=== PATIENT | male | born 2000 | race Caucasian/White ===

== ENCOUNTER 2022-04-21 09:18 | Observation (INO) ==
[2022-04-21] MEDS ORDERED: SODIUM CHLORIDE 0.9% 1000ML 1,000 ML IV ONE (10:25)
--- NOTE | 2022-04-21 10:41 | Emergency Department Note ---
Impression & Plan Facial cellulitis, Facial swelling, Abscess of face ED Provider Note INFORMANT: Patient ED PROVIDER(S): Bandar Beavers MD CHIEF COMPLAINT: Facial swelling PLAN: Disposition: Admitted Condition: Good Outpatient prescription management: none Referral: None MEDICAL DECISION MAKING: Patient presented to the emergency [facility] because of facial swelling. Blood work is obtained. The patient had a mild leukocytosis. Chemistry panel was unremarkable. He underwent CT imaging and he was found to have facial cellulitis as well as a facial abscess. He was given IV clindamycin. I did c onsult with Dr. Lehman of oral maxillofacial surgery. He agreed with the antibiotics and felt that bringing him into the hospital for additional antibiotics and surgical intervention would be most appropriate. I did consult with the [facility] service. Patient was evaluated in the ER and admitted for further management. Triage Nursing notes reviewed and agree them. Vital Signs: reviewed and remarkable for fever Differential diagnosis: Facial cellulitis, sinusitis, dental abscess, viral syndrome, parotitis,peritonsillar abscess, retropharyngeal abscess, otitis, as well as other pathologies. Diagnostics interpreted by me: ECG: none Cardiac Monitoring: None Imaging studies: CT imaging with IV contrast revealed facial cellulitis and abscess. I refer you to the EMR for further details. HPI: The patient is a 21 year old male who presents to the Emergency Room with complaints of left facial swelling. This started yesterday and is worsening. Located in the left cheek area. Patient denies trauma. The patient also notes the following associated symptoms, none. The patient has taken ibuprofen for relieving factors. Current pain is rated as 5/10. Patient currently residing at [facility] for alcohol issues. Last drink was 10 days ago. Pt denies LOC, headache, fevers, chills, diaphoresis, visual changes, neck pain, chest pain, breathing difficulties, nausea, vomiting, abdominal pain, back pain, numbness, weakness, lymphadenopathy, rash, or other complaints. ROS: See above HPI for pertinent positives & negatives. A total of 10 systems reviewed and were otherwise negative. PAST MEDICAL HISTORY:See Below , alcohol abuse PAST SURGICAL HISTORY:See Below, FAMILY HISTORY:See Below SOCIAL HISTORY:See Below, smoker HOME MEDICATIONS:See Below ALLERGIES:See Below VITALS:See Below PHYSICAL EXAMINATION: GENERAL: Awake, alert, mildly uncomfortable-appearing, in no distress HENT: Normocephalic, left facial swelling appreciated from below the eye down to the angle of the mouth. Mild associated tenderness. Oropharynx examination was unremarkable except for poor dentition. No significant gum swelling or tooth tenderness to percussion. EYES: Normal conjunctiva. Sclera non-icteric. PERRLA. EOMI. NECK: Inspection normal. Non-tender. Supple. No nuchal rigidity. FROM. No masses. RESPIRATORY: Clear to auscultation. No wheezes. No rales. Normal respiratory effort. CARDIAC: Tachycardic rate. Normal rhythm. No murmurs. No rubs. Extremities warm and well perfused. Pulses equal. No JVD. GI: Soft, non-distended. No tenderness to palpation. No rebound or guarding. No masses. MUSCULOSKELETAL: Atraumatic. There is no CVA tenderness to palpation. No joint edema. NEURO: Normal sensorium. No sensory or motor deficits noted. SKIN: No rash or jaundice noted. Bandar Beavers MD Past Med/Surg History Medical History (Updated 04/21/22 @ 15:32 by Bandar Beavers MD) AA (alcohol abuse) ADHD Anxiety Facial cellulitis Family History (Updated 04/21/22 @ 13:18 by EDUARD Argueta) Grandfather Heart disease Myocardial infarction Other Hypertension Social History Smoking Status: Current every day smoker Preferred Language: Hong Konger Feels Safe at Home: Yes Allergies Allergies Allergy/AdvReac Type Severity Reaction Status Date / Time Penicillins Allergy Hives Unverified 04/21/22 11:11 Home Meds Home Medications Medication Instructions Recorded Confirmed acetaminophen 650 mg tablet 650 mg PO Q4H PRN 04/21/22 04/21/22 clonidine HCl 0.1 mg tablet 0.1 mg PO DAILY 04/21/22 04/21/22 dexmethylphenidate 20 mg 20 mg PO DAILY 04/21/22 04/21/22 capsule,extended release [id number] (Focalin XR) escitalopram oxalate 20 mg tablet 20 mg PO HS 04/21/22 04/21/22 famotidine 20 mg tablet 20 mg PO BID 04/21/22 04/21/22 folic acid 1 mg tablet 1 mg PO DAILY 04/21/22 04/21/22 hydroxyzine pamoate 50 mg capsule 50 mg PO DAILY 04/21/22 04/21/22 ibuprofen 600 mg tablet 600 mg PO Q6H PRN 04/21/22 04/21/22 loratadine 10 mg tablet (Claritin) 10 mg PO DAILY 04/21/22 04/21/22 mecobalamin (vitamin B12) 1,000 1,000 mcg PO DAILY 04/21/22 04/21/22 mcg chewable tablet (B12 Active) melatonin 5 mg chewable tablet 5 mg PO HS PRN 04/21/22 04/21/22 multivitamin 1 tab PO DAILY 04/21/22 04/21/22 thiamine HCl (vitamin B1) 100 mg 100 mg PO DAILY 04/21/22 04/21/22 tablet Results & Data (ED) Vital Signs Vital Signs - 24 hr 04/21/22 09:19 04/21/22 10:40 04/21/22 11:47 Temperature 37.6 C H Temperature Source Oral Pulse Rate 128 H 117 H Pulse Rate [Finger] 123 H 117 H 98 H Pulse Rhythm Regular Pulse Rhythm [Finger] Regular Regular Pulse Strength [Finger] Normal Normal Respiratory Rate 16 18 18 Respiratory Effort / Characteristics Non-Labored Non-Labored Spontaneous Respiratory Depth Normal Normal Respiratory Pattern Regular Regular Blood Pressure 136/86 Blood Pressure [Left Arm] 136/86 134/84 136/96 Blood Pressure Mean 102 Blood Pressure Mean [Left Arm] 102 100 109 Blood Pressure Position [Left Arm] Sitting Sitting Pulse Oximetry 96 97 98 Oxygen Delivery Method Room Air Room Air Sepsis Recent Fever Within 48 Hours No Sepsis New/Unexplained Change in Mental Status No Sepsis Action Taken by Nursing No Action Required Laboratory Data Result diagrams: 04/21/22 10:40 04/21/22 10:40 Lab Results 04/21/22 04/21/22 04/21/22 Range/Units 10:40 10:40 12:40 WBC 12.87 H (4.8-10.8) K/uL RBC 4.69 L (4.7-6.1) M/uL Hgb 15.2 (14.0-18.0) g/dL Hct 45.9 (42-52) % MCV 97.9 (80-100) fL MCH 32.4 (25-34) pg MCHC 33.1 (32-36) g/dL RDW Std Deviation 43.8 (36.4-46.3) fL RDW Coeff of Meg 12.3 (11.5-14.5) % Plt Count 290 (130-400) K/uL MPV 10.2 (7.4-10.4) fL Immature Gran % (Auto) 0.2 % Neut % (Auto) 74.0 % Lymph % (Auto) 9.9 % Bremer % (Auto) 14.8 % Eos % (Auto) 0.9 % Baso % (Auto) 0.2 % Neut # (Auto) 9.53 H (1.4-6.5) K/uL Lymph # (Auto) 1.27 (1.2-3.4) K/uL Bremer # (Auto) 1.91 H (0.11-0.59) K/uL Eos # (Auto) 0.11 (0-0.5) K/uL Baso # (Auto) 0.02 (0-0.2) K/uL Immature Gran # (Auto) 0.03 H (0.00-0.02) K/uL Sodium 139 (136-145) mmol/L Potassium 3.9 (3.5-5.1) mmol/L Chloride 105 (98-107) mmol/L Carbon Dioxide 29 (21-32) mmol/L Anion Gap 5 (3-11) BUN 11 (6-23) mg/dl Creatinine 1.03 (0.6-1.4) mg/dl Est Cr Clr Drug Dosing 99.1 ml/min Est GFR ( Amer) 119.0 ml/min Est GFR (Non-Af Amer) 102.6 ml/min BUN/Creatinine Ratio 10.7 (10-20) Glucose 93 (70-99(Fasting)) mg/dl Calcium 9.8 (8.5-10.1) mg/dl Total Bilirubin 1.4 H (0.2-1.0) mg/dl AST 14 (13-39) U/L ALT 16 (7-52) U/L Alkaline Phosphatase 42 (34-104) U/L Total Protein 7.6 (6.0-8.3) gm/dl Albumin 4.7 (3.4-5.0) gm/dl Globulin 2.9 (2.5-4.0) gm/dl Albumin/Globulin Ratio 1.6 (0.9-2) SARS-CoV-2, RNA, NAAT NEGATIVE (NEGATIVE) Administered Medications Discontinued Medications Acetaminophen (Acetaminophen 500 Mg Tab) 1,000 mg PO NOW STA Stop: 04/21/22 12:19 Last Admin: 04/21/22 12:48 Dose: 1,000 mg Documented by: [id number] Sodium Chloride (Nss 1000ml) 1,000 mls @ 999 mls/hr IV .Q1H1M ONE Stop: 04/21/22 11:25 Last Infusion: 04/21/22 11:48 Dose: 0 mls/hr Documented by: [id number] Admin: 04/21/22 10:45 Dose: 999 mls/hr Documented by: [id number] Clindamycin Phosphate 600 mg/ (Dextrose) 54 mls @ 100 mls/hr IV ONE ONE Stop: 04/21/22 12:50 Last Infusion: 04/21/22 13:44 Dose: 0 mls/hr Documented by: [id number] Admin: 04/21/22 12:59 Dose: 100 mls/hr Documented by: [id number] Ioversol (Optiray 320 100ml) 94 ml IV ONCE ONE Stop: 04/21/22 11:35 Last Admin: 04/21/22 11:34 Dose: 94 ml Documented by: [id number] Imaging Data Radiologist's Impression: Soft Tissue Neck CT 04/21/22 10:25 CT OF THE NECK WITH IV CONTRAST CLINICAL HISTORY: left facial swelling, fever COMPARISON STUDY: No previous studies for comparison. TECHNIQUE: Following IV administration of 94 mL of Optiray, helical axial images of the neck were obtained. Sagittal and coronal reconstructions were viewed. Automated exposure control was utilized for the study. A dose lowering technique was utilized adhering to the principles of ALARA. CT DOSE: 405.05 mGy.cm FINDINGS: Visualized portions of the intracranial contents are unremarkable. Mastoid air cells are clear. There is moderate polypoid mucosal thickening of th e left maxillary sinus. Extensive left facial and neck stranding is noted with skin thickening. There is thickening of the left platysma. This is centered on the left maxilla. There is a 2 x 0.7 cm rim-enhancing fluid collection along the anterolateral aspect of the left maxilla. This represents an abscess. The definite source not identified however may be related to a periapical lucency of the maxillary left first bicuspid. This abscess is likely odontogenic. No additional fluid collections are identified. There is no soft tissue gas. Major vasculature of the neck is patent. Lung apices are unremarkable. Epiglottis is normal. Parotid and submandibular glands are normal. Mildly enlarged left cervical lymph nodes are likely reactive. IMPRESSION: 2 x 0.7 cm abscess overlying the left aspect of the maxilla. Definitive source not identified however suspected source is the left first maxillary bicuspid. This abscess is likely odontogenic. Associated left maxillary sinus mucosal thickening and left facial and neck cellulitis. No additional abscesses. ACT 112: Negative or not required by law. Electronically signed by: zEio Garcia M.D. 04/21/2022 12:10 PM Discharge Plan Visit Data Chief Complaint: Facial Injury/Pain Stated Complaint: SWOLLEN FACE, LEFT SIDE, PAIN ED Provider: Bandar Beavers Discharge Problem: Facial cellulitis, Facial swelling, Abscess of face Patient Disposition: Admitted As Inpatient Discharge Instructions Interventions: ED Discharge Assessment Last Done: 04/21/22 15:08
[2022-04-21 11:03] LABS: Basophils # (auto) 0.02 K/uL (0-0.2); Basophils % (auto) 0.2 %; Eosinophils # (auto) 0.11 K/uL (0-0.5); Eosinophils % (auto) 0.9 %; Hematocrit (blood only) 45.9 % (42-52); Hemoglobin 15.2 g/dL (14.0-18.0); Immature Granulocytes # (auto) 0.03 K/uL (0.00-0.02); Immature Granulocytes % (auto) 0.2 %; Lymphocytes # (auto) 1.27 K/uL (1.2-3.4); Lymphocytes % (auto) 9.9 %; Mean Corpuscular Hemoglobin 32.4 pg (25-34); Mean Corpuscular Hgb Conc 33.1 g/dL (32-36); Mean Corpuscular Volume 97.9 fL (80-100); Mean Platelet Volume 10.2 fL (7.4-10.4); Monocytes # (auto) 1.91 K/uL (0.11-0.59); Monocytes % (auto) 14.8 %; Neutrophils # (auto) 9.53 K/uL (1.4-6.5); Platelet Count 290 K/uL (130-400); RDW Coefficient of Variation 12.3 % (11.5-14.5); RDW Standard Deviation 43.8 fL (36.4-46.3); Red Blood Count 4.69 M/uL (4.7-6.1); White Blood Count 12.87 K/uL (4.8-10.8)
[2022-04-21 11:20] LABS: Albumin Globulin Ratio 1.6 (0.9-2); Albumin Level 4.7 gm/dl (3.4-5.0); BUN Creatinine Ratio 10.7 (10-20); Bilirubin,Total 1.4 mg/dl (0.2-1.0); Calcium 9.8 mg/dl (8.5-10.1); Creatinine Clr Calc Pharmacy 99.1 ml/min; Est GFR (Non-African American) 102.6 ml/min; Globulin 2.9 gm/dl (2.5-4.0); Potassium 3.9 mmol/L (3.5-5.1); Total Protein 7.6 gm/dl (6.0-8.3)
[2022-04-21] MEDS ORDERED: OPTIRAY 320 100ml IV ONE (11:34)
--- NOTE | 2022-04-21 12:12 | CT Scan Report ---
CT OF THE NECK WITH IV CONTRAST CLINICAL HISTORY: left facial swelling, fever COMPARISON STUDY: No previous studies for comparison. TECHNIQUE: Following IV administration of 94 mL of Optiray, helical axial images of the neck were ob tained. Sagittal and coronal reconstructions were viewed. Automated exposure control was utilized f or the study. A dose lowering technique was utilized adhering to the principles of ALARA. CT DOSE: 405.05 mGy.cm FINDINGS: Visualized portions of the intracranial contents are unremarkable. Mastoid air cells are c lear. There is moderate polypoid mucosal thickening of the left maxillary sinus. Extensive left facia l and neck stranding is noted with skin thickening. There is thickening of the left platysma. This is centered on the left maxilla. There is a 2 x 0.7 cm rim-enhancing fluid collection along the anterol ateral aspect of the left maxilla. This represents an abscess. The definite source not identified how ever may be related to a periapical lucency of the maxillary left first bicuspid. This abscess is lik barbara odontogenic. No additional fluid collections are identified. There is no soft tissue gas. Major v asculature of the neck is patent. Lung apices are unremarkable. Epiglottis is normal. Parotid and sub mandibular glands are normal. Mildly enlarged left cervical lymph nodes are likely reactive. IMPRESSION: 2 x 0.7 cm abscess overlying the left aspect of the maxilla. Definitive source not ident ified however suspected source is the left first maxillary bicuspid. This abscess is likely odontogen ic. Associated left maxillary sinus mucosal thickening and left facial and neck cellulitis. No additi onal abscesses. ACT 112: Negative or not required by law. Electronically signed by: Ezio Garcia M.D. 04/21/2022 12:10 PM
[2022-04-21] MEDS ORDERED: CLINDAMYCIN 600 MG in DEXTROSE 5% 50 ML IV ONE (12:18)
[2022-04-21] MEDS ORDERED: ACETAMINOPHEN 500 MG TAB PO STA (12:18)
--- NOTE | 2022-04-21 13:00 | History & Physical Report ---
Date of Service April 21, 2022 Assessment & Plan (1) Tooth abscess: Plan: There is moderate polypoid mucosal thickening of the left maxillary sinus. Extensive left facial and neck stranding is noted with skin thickening. There is thickening of the left platysma. This is centered on the left maxilla. There is a 2 x 0.7 cm rim-enhancing fluid collection along the anterolateral aspect of the left maxilla. This represents an abscess. - Clindamycin continue 600mg IV q8 hours - NPO after midnight - Peridex oral rinse at least BID - No active drainage - No difficulty swallowing and voice is normal - OMFS consulted- appreciate assistance (2) AA (alcohol abuse): Plan: ~ Day 14 from last drink and at rehab - Should be well outside the range for any withdraw - He reports not having any hallucinations or seizures with his stay there - MAR reviewed as per HPI has not needed any of his PRNs for withdraw sx - Continue Thiamine and Folic Acid (3) Anxiety: Plan: Continue Hydroxyzine Continue escitalopram 20mg nightly (4) ADHD: Plan: Continue with Focalin XR or equivalent- if no formulary equivalent should be in house <48 hours (5) DVT prophylaxis: Plan: SCDs/ambulation History of Present Illness Primary Care Provider: Chino Bowles 21 YOM that is currently at [facility] ~day 14 for alcohol rehab. He has history of: ADHD, Anxiety with allergy to PCN(Hives as a kid). Patient reports to the EMD today for complaints of left facial pain and swelling. This started approx 2 days ago where he thought he just got bit by something or having an allergic reaction. This progressed to left upper tooth pain and noticing some swelling under his left eye. He denies any fevers, chills, sinus congestion or ear pain and without difficulty swallowing. In the EMD the patient had routine labs performed, and soft tissue of the neck, head and face CT scan performed notable for abscess overlying left maxilla with mucosal thickening. The patient is having pain on the left upper side of his mouth at or approx teeth number 11- 13. Patient was started on Clindamycin by the EMD and EMD physician spoke with OMFS manager web application. Patient to be admitted, kept NPO after midnight for surgical evaluation in the morning. Will continue with Tylenol for pain, allow to eat now, NPO after midnight, Peridex oral rinse. Patient reports that he thought he was drinking a little too much for his age, but didn't have a drinking problem, so he went to [facility] for help. He denies any other drug use. He also denies any hallucinations or difficulty with withdraw. MAR reviewed from there he has not needed any Clonidine for withdraw and feels his anxiety is controlled. COVID test on admission is: NEGATIVE Allergies Allergy/AdvReac Type Severity Reaction Status Date / Time Penicillins Allergy Hives Unverified 04/21/22 11:11 Home Medications Medication Instructions Recorded Confirmed Type acetaminophen 650 mg tablet 650 mg PO Q4H PRN 04/21/22 04/21/22 History clonidine HCl 0.1 mg tablet 0.1 mg PO DAILY 04/21/22 04/21/22 History dexmethylphenidate 20 mg 20 mg PO DAILY 04/21/22 04/21/22 History capsule,extended release [id number] (Focalin XR) escitalopram oxalate 20 mg tablet 20 mg PO HS 04/21/22 04/21/22 History famotidine 20 mg tablet 20 mg PO BID 04/21/22 04/21/22 History folic acid 1 mg tablet 1 mg PO DAILY 04/21/22 04/21/22 History hydroxyzine pamoate 50 mg capsule 50 mg PO DAILY 04/21/22 04/21/22 History ibuprofen 600 mg tablet 600 mg PO Q6H PRN 04/21/22 04/21/22 History loratadine 10 mg tablet (Claritin) 10 mg PO DAILY 04/21/22 04/21/22 History mecobalamin (vitamin B12) 1,000 1,000 mcg PO DAILY 04/21/22 04/21/22 History mcg chewable tablet (B12 Active) melatonin 5 mg chewable tablet 5 mg PO HS PRN 04/21/22 04/21/22 History multivitamin 1 tab PO DAILY 04/21/22 04/21/22 History thiamine HCl (vitamin B1) 100 mg 100 mg PO DAILY 04/21/22 04/21/22 History tablet Past Med/Surg History Medical History (Updated 04/21/22 @ 15:32 by Bandar Beavers MD) AA (alcohol abuse) ADHD Anxiety Facial cellulitis Family History (Updated 04/21/22 @ 13:18 by EDUARD Argueta) Grandfather Heart disease Myocardial infarction Other Hypertension Social History Smoking Status: Current every day smoker Preferred Language: Luxembourger Feels Safe at Home: Yes Review of Systems Review of Systems: REVIEW OF SYSTEMS: Constitutional: No fever, sweats or chills Eyes: (+) swelling under left eye, No diplopia, no worsening or blurred vision ENT: (+) left tooth pain, sinus congestion, normal hearing, no trouble swallowing Respiratory: No cough, sputum, dyspnea at rest or on exertion Cardiovascular: No chest pain, tightness or palpitations Abdomen: No pain, nausea, vomiting, diarrhea or constipation Musculoskeletal: No joint pain, calf pain, swelling Neurologic: No weakness, numbness/tingling, or balance problems Psychiatric: (+) anxiety or depression Skin: No rash or itch Physical Exam Physical Exam: PHYSICAL EXAM: General: awake, alert, no apparent distress Head: Normocephalic, atraumatic ENT: swelling to under left eye with erythema, pain with palpation to left max sinus, PERRLA, EOMI, no pharyngeal exudate, mucous membranes dry, no submandibular involvement, Neuro: AAO x 3, speech clear and appropriate, strength intact bilaterally 5/5, sensation intact and equal all extremities and dermatomes, no pronator drift Chest: equal rise and fall of the chest, no accessory muscle use, no heaves or thrills, Clear to auscultation, on room air, Cardiac: Regular rate and rhythm, telemetry reviewed, skin warm dry, cap refill <3 seconds, peripheral pulses +2 no JVD, no murmur, no JVD, no edema GI: NABS x 4 quadrants, soft, nontender to palpation, no rebound, guarding or tenderness : Spontaneously voiding, no pain, no CVA tenderness, Extremities: Normal inspection, no peripheral edema or erythema, calfs nontender to palpation Skin: no rash or erythema Results & Data Results & Data ([facility]) Vital Signs (Past 12 Hours) Vital Signs Temp Pulse Pulse Resp BP BP Pulse Ox 04/21/22 12:45 98 H 18 130/88 99 04/21/22 11:47 98 H 18 136/96 98 04/21/22 10:40 117 H 117 H 18 134/84 97 04/21/22 09:19 37.6 C H 128 H 123 H 16 136/86 136/86 96 Laboratory Results Abnormal lab results 04/21/22 04/21/22 Range/Units 10:40 10:40 WBC 12.87 H (4.8-10.8) K/uL RBC 4.69 L (4.7-6.1) M/uL Neut # (Auto) 9.53 H (1.4-6.5) K/uL Meeker # (Auto) 1.91 H (0.11-0.59) K/uL Immature Gran # (Auto) 0.03 H (0.00-0.02) K/uL Total Bilirubin 1.4 H (0.2-1.0) mg/dl Diagnostic Findings Soft Tissue Neck CT 04/21/22 10:25 CT OF THE NECK WITH IV CONTRAST CLINICAL HISTORY: left facial swelling, fever COMPARISON STUDY: No previous studies for comparison. TECHNIQUE: Following IV administration of 94 mL of Optiray, helical axial images of the neck were obtained. Sagittal and coronal reconstructions were viewed. Automated exposure control was utilized for the study. A dose lowering technique was utilized adhering to the principles of ALARA. CT DOSE: 405.05 mGy.cm FINDINGS: Visualized portions of the intracranial contents are unremarkable. Mastoid air cells are clear. There is moderate polypoid mucosal thickening of the left maxillary sinus. Extensive left facial and neck stranding is noted with skin thickening. There is thickening of the left platysma. This is centered on the left maxilla. There is a 2 x 0.7 cm rim-enhancing fluid collection along the anterolateral aspect of the left maxilla. This represents an abscess. The definite source not identified however may be related to a periapical lucency of the maxillary left first bicuspid. This abscess is likely odontogenic. No additional fluid collections are identified. There is no soft tissue gas. Major vasculature of the neck is patent. Lung apices are unremarkable. Epiglottis is normal. Parotid and submandibular glands are normal. Mildly enlarged left cervical lymph nodes are likely reactive. IMPRESSION: 2 x 0.7 cm abscess overlying the left aspect of the maxilla. Definitive source not identified however suspected source is the left first maxillary bicuspid. This abscess is likely odontogenic. Associated left maxillary sinus mucosal thickening and left facial and neck cellulitis. No additional abscesses. ACT 112: Negative or not required by law. Electronically signed by: Ezio Garcia M.D. 04/21/2022 12:10 PM Medications Administered Discontinued Medications Acetaminophen (Acetaminophen 500 Mg Tab) 1,000 mg PO NOW STA Stop: 04/21/22 12:19 Last Admin: 04/21/22 12:48 Dose: 1,000 mg Documented by: [id number] Sodium Chloride (Nss 1000ml) 1,000 mls @ 999 mls/hr IV .Q1H1M ONE Stop: 04/21/22 11:25 Last Infusion: 04/21/22 11:48 Dose: 0 mls/hr Documented by: [id number] Admin: 04/21/22 10:45 Dose: 999 mls/hr Documented by: [id number] Clindamycin Phosphate 600 mg/ (Dextrose) 54 mls @ 100 mls/hr IV ONE ONE Stop: 04/21/22 12:50 Last Admin: 04/21/22 12:59 Dose: 100 mls/hr Documented by: [id number] Ioversol (Optiray 320 100ml) 94 ml IV ONCE ONE Stop: 04/21/22 11:35 Last Admin: 04/21/22 11:34 Dose: 94 ml Documented by: [id number] ECG Additional Comments: none- will obtain on admission Code Status & VTE Plan Code Status CODE: FULL VTE: SCDS VTE Prophylaxis Plan VTE Prophylaxis will be ordered: Yes Supervising Physician Co-Signing Physician Notes CELL SUPPORT OPERATOR Supervision Note: I personally saw and examined the patient. I verified all al points and agree with CELL SUPPORT OPERATOR with the following exceptions and/or additions: S-This pt is a 21 yo male with a h/o anxiety, AUD, ADHD, who is currently at a substance abuse rehab and presents with worsening facial swelling and pain. Denies fevers/chills. Reports a long h/o dental issues with multiple rounds of dental work. History and ROS reviewed as above O- Vitals reviewed Gen: [AAOx3, NAD] HEENT: [anicteric sclerae, EOMI, left maxillary region with palpable area of fluctuance and tenderness, left maxillary gum erythematous and edematous] CV: [RRR no mgr nl S1S2] Pulm: [CTAB no wcr] Abd: [+BS soft NT ND no masses or hernias] Ext: [no edema, 2+ DP pulses] Skin: [no rashes, warm/dry] Neuro: [full strength throughout] Labs and Rads reviewed A/P-21 yo male here with dental infection and maxillary abscess on left side of face. No evidence of orbital cellulitis on exam or scan. Admit for IV abx, pain control, OMFS eval. check CBC, BMP in AM -continue home meds, no risk for EtOH withdrawal at this point PG Care Time/CCT Total # of Minutes Spent Total Time Spent with Patient: Total time spent is greater than 50% in coordination of care (as documented) at patient's floor/unit and/or counseling patient: Coding Level of Care Code 82256 Initial Inpt Care Lvl 2 Diagnoses Tooth abscess K04.7 AA (alcohol abuse) F10.10 Anxiety F41.9 ADHD F90.9 DVT prophylaxis Z29.9
[2022-04-21] MEDS ORDERED: NON-FORMULARY MEDICATION (Acetaminophen 650 mg Tablet) PO PRN (15:34)
[2022-04-21] MEDS ORDERED: ONDANSETRON INJ 2 MG/ML 2 ML VIAL IV PRN (15:34)
[2022-04-21] MEDS ORDERED: ACETAMINOPHEN 325 MG TAB PO PRN (15:34)
[2022-04-21] MEDS: CHLORHEXIDINE GLUCONATE 0.12% 480 ML MT SCH ×2 (16:52→21:06)
--- NOTE | 2022-04-21 19:31 | Oral/Maxillofacial Consult ---
Date of Consultation April 21, 2022 Assessment & Plan (1) Abscess of face: (2) Tooth abscess: (3) Facial swelling: (4) Facial cellulitis: (5) AA (alcohol abuse): (6) Anxiety: (7) ADHD: History of Present Illness Attending Physician: Aarti Ruiz MD History of Present Illness Oral Maxillofacial Surgery Exam Present Complaint: I have pain/swelling/drainage from my infected upper left teeth. Symptoms just started, he noticed swelling of left upper lip, cheek and infraorbital (cuspid) space Oral Exam: Finding--Swollen tender gingival tissue above teeth 10-14 in the mucobuccal fold, some drainage noted, tender gingival tissue with deep pocket formation. Suggested either extraction vs root canal of # 12 patient elected saving the tooth and will get root canal once he completes rehab. Had extraction of 2 upper pre-molars with ortho I discussed the CT findings and discussed the congestion w/in the left maxillary sinus most likely due to the infected upper left pre-molar tooth Deshawn does not want ant teeth extracted--I told him that the I&D will but him time but ultimately either root canal or extraction will be needed regarding the upper left pre molar tooth. Presently he has NO sinus issues or congestion Imaging: CT OF THE NECK WITH IV CONTRAST CLINICAL HISTORY: left facial swelling, fever FINDINGS: Visualized portions of the intracranial contents are unremarkable. Mastoid air cells are clear. There is moderate polypoid mucosal thickening of the left maxillary sinus. Extensive left facial and neck stranding is noted with skin thickening. There is thickening of the left platysma. This is centered on the left maxilla. There is a 2 x 0.7 cm rim-enhancing fluid collection along the anterolateral aspect of the left maxilla. This represents an abscess. The definite source not identified however may be related to a periapical lucency of the maxillary left first bicuspid. This abscess is likely odontogenic. No additional fluid collections are identified. There is no soft tissue gas. Major vasculature of the neck is patent. Lung apices are unremarkable. Epiglottis is normal. Parotid and submandibular glands are normal. Mildly enlarged left cervical lymph nodes are likely reactive. IMPRESSION: 2 x 0.7 cm abscess overlying the left aspect of the maxilla. Definitive source not identified however suspected source is the left first maxillary bicuspid. This abscess is likely odontogenic. Associated left maxillary sinus mucosal thickening and left facial and neck cellulitis. No additional abscesses. Soft tissue: floor of the mouth, tongue, hard/soft palate, posterior pharyngeal area all with in normal limits, no pathology or abnormal findings noted. Gross intraoral mucobuccal fold swelling Swollen upper lip and infraorbital area Oral Care: Overall oral care is good Occlusion: Class II TMJ exam: No pop, clicking, pain, good ROM, No history of TMJ injury or dysfunction Periodontal exam: Healthy gingival tissue without evidence of periodontal pathology, however upper left side shows acute mucobuccal swelling secondary to current infection Head/Neck exam: Neck is supple, FROM, Able to extend and flex neck w/o difficulty, no masses, no abnormalities, no airway issues, no evidence of sleep apnea. Treatment Plan: To OR tomorrow for intraoral I&D of left subperiostea land infraorbital (cuspid ) space infection (abscess) Set up with general anesthesia in hospital due to complexity of the procedure I reviewed the treatment plan and consent with the patient. Understanding was expressed. Time was given for questions regarding the surgery, risks and post op care. Discussed alternative to treatment--procedure as planned with I and D only as requested by patient. I discussed the need for root canal of upper left pre-molar vs extraction once he completes 21 more days in REHAB. He will seek dental follow up once he in home in the [facility] Risks discussed: Bleeding,Pain,swelling,infection or recurrence of the infection delayed healing, nerve injury to face,lips,tongue,chin area which could be permanent (rare). TMJ, jaw stiffness, ear pain (referred). Sinus problems like fistula or infection.Relationship of wisdom teeth to nerve/sinus and risk of jaw fracture. Home care reviewed: tooth brushing, rinsing, follow up care with Dr Lehman. diet=[id number] dental. Discussed activity level, driving/work Discussed that we will not be able to Rx any narcotic pain Meds-understanding was expressed Surgery to be set up tomorrow in OR I and D left facial infection with placement of Doreen drain Post op oral Clindamycin 300 mg q6 hrs x 10 days while at Rehab I will remove drain in 3-5 days in my office Allergies Allergy/AdvReac Type Severity Reaction Status Date / Time Penicillins Allergy Hives Unverified 04/21/22 11:11 Home Medications Medication Instructions Recorded Confirmed Type acetaminophen 650 mg tablet 650 mg PO Q4H PRN 04/21/22 04/21/22 History clonidine HCl 0.1 mg tablet 0.1 mg PO DAILY 04/21/22 04/21/22 History dexmethylphenidate 20 mg 20 mg PO DAILY 04/21/22 04/21/22 History capsule,extended release [id number] (Focalin XR) escitalopram oxalate 20 mg tablet 20 mg PO HS 04/21/22 04/21/22 History famotidine 20 mg tablet 20 mg PO BID 04/21/22 04/21/22 History folic acid 1 mg tablet 1 mg PO DAILY 04/21/22 04/21/22 History hydroxyzine pamoate 50 mg capsule 50 mg PO DAILY 04/21/22 04/21/22 History ibuprofen 600 mg tablet 600 mg PO Q6H PRN 04/21/22 04/21/22 History loratadine 10 mg tablet (Claritin) 10 mg PO DAILY 04/21/22 04/21/22 History mecobalamin (vitamin B12) 1,000 1,000 mcg PO DAILY 04/21/22 04/21/22 History mcg chewable tablet (B12 Active) melatonin 5 mg chewable tablet 5 mg PO HS PRN 04/21/22 04/21/22 History multivitamin 1 tab PO DAILY 04/21/22 04/21/22 History thiamine HCl (vitamin B1) 100 mg 100 mg PO DAILY 04/21/22 04/21/22 History tablet Patient History Medical History (Updated 04/21/22 @ 15:32 by Bandar Beavers MD) AA (alcohol abuse) ADHD Anxiety Facial cellulitis Family History (Updated 04/21/22 @ 13:18 by EDUARD Argueta) Grandfather Heart disease Myocardial infarction Other Hypertension Social History Smoking Status: Never smoker Hx Alcohol Use: Yes Alcohol type: beer Hx Substance Use: No Preferred Language: Icelandic [employer] Supervisor Required: No Beliefs That Will Affect Care: None Current Living Situation: Rehab Feels Safe at Home: Yes Safety Concerns: Feels Safe At This Time Results & Data ([facility]) Vital Signs (Past 12 Hours) Vital Signs Temp Pulse Pulse Resp BP BP Pulse Ox 04/21/22 15:41 37 C 79 16 135/92 99 04/21/22 15:08 80 19 04/21/22 14:41 106 H 16 124/82 100 04/21/22 13:41 87 17 136/89 100 04/21/22 12:45 98 H 18 130/88 99 04/21/22 11:47 98 H 18 136/96 98 04/21/22 10:40 117 H 117 H 18 134/84 97 04/21/22 09:19 37.6 C H 128 H 123 H 16 136/86 136/86 96 PG Care Time/CCT Total # of Minutes Spent Total Time Spent with Patient: Total time spent is greater than 50% in coordination of care (as documented) at patient's floor/unit and/or counseling patient: Coding Level of Care Code 93000 Office/OBS Consult Lvl 3 Diagnoses Abscess of face L02.01 Tooth abscess K04.7 Facial swelling R22.0 Facial cellulitis L03.211 AA (alcohol abuse) F10.10 Anxiety F41.9 ADHD F90.9
[2022-04-21] MEDS ORDERED: ESCITALOPRAM OXALATE 20 MG TAB PO SCH (21:00)
[2022-04-21] MEDS: CLINDAMYCIN 600 MG in DEXTROSE 5% 50 ML IV SCH (21:01)
[2022-04-21] MEDS: FAMOTIDINE 20 MG TAB PO SCH (21:05)
[2022-04-22] MEDS ORDERED: LACTATED RINGER'S 1,000 ML IV SCH
[2022-04-22] MEDS: CLINDAMYCIN 600 MG in DEXTROSE 5% 50 ML IV SCH ×2 (05:18→12:57)
[2022-04-22 06:32] LABS: Basophils # (auto) 0.03 K/uL (0-0.2); Basophils % (auto) 0.3 %; Eosinophils # (auto) 0.28 K/uL (0-0.5); Eosinophils % (auto) 2.7 %; Hematocrit (blood only) 42.8 % (42-52); Hemoglobin 14.1 g/dL (14.0-18.0); Immature Granulocytes # (auto) 0.02 K/uL (0.00-0.02); Immature Granulocytes % (auto) 0.2 %; Lymphocytes # (auto) 1.89 K/uL (1.2-3.4); Lymphocytes % (auto) 18.4 %; Mean Corpuscular Hemoglobin 32.3 pg (25-34); Mean Corpuscular Hgb Conc 32.9 g/dL (32-36); Mean Corpuscular Volume 97.9 fL (80-100); Mean Platelet Volume 10.2 fL (7.4-10.4); Monocytes # (auto) 1.51 K/uL (0.11-0.59); Monocytes % (auto) 14.7 %; Neutrophils # (auto) 6.52 K/uL (1.4-6.5); Neutrophils % (auto) 63.7 %; Platelet Count 288 K/uL (130-400); RDW Coefficient of Variation 12.3 % (11.5-14.5); RDW Standard Deviation 44.3 fL (36.4-46.3); Red Blood Count 4.37 M/uL (4.7-6.1); White Blood Count 10.25 K/uL (4.8-10.8)
[2022-04-22 06:58] LABS: BUN Creatinine Ratio 8.7 (10-20); Calcium 9.4 mg/dl (8.5-10.1); Creatinine Clr Calc Pharmacy 97.1 ml/min; Est GFR (African American) 117.6 ml/min; Est GFR (Non-African American) 101.4 ml/min; Magnesium 2.1 mg/dl (1.7-2.4)
[2022-04-22] MEDS ORDERED: LIDOCAINE 2% 2 ML VIAL/AMP(20MG/ML) INFIL ONE (07:56)
[2022-04-22] MEDS ORDERED: PROPOFOL IV EMULSION 10 MG/ML 20 ML VIAL IV ONE (07:56)
[2022-04-22] MEDS ORDERED: fentaNYL citrate 100 MCG/2 ML VIAL ONE (07:56)
[2022-04-22] MEDS ORDERED: ROCURONIUM BROMIDE 10 MG/ML 5 ML VIAL IV ONE (07:56)
[2022-04-22] MEDS ORDERED: DEXAMETHASONE SOD INJ 4 MG/ML VIAL ONE (07:56)
[2022-04-22] MEDS ORDERED: MIDAZOLAM HCL 1 MG/ML 2ML VIAL ONE (07:56)
[2022-04-22] MEDS ORDERED: ONDANSETRON INJ 2 MG/ML 2 ML VIAL ONE (07:56)
[2022-04-22] MEDS ORDERED: OXYMETAZOLINE 0.05% 30 ML BTL ONE (07:58)
[2022-04-22] MEDS ORDERED: ACETAMINOPHEN 1000 MG/100 ML IV IV ONE (07:58)
[2022-04-22] MEDS ORDERED: BUPIVACAINE/EPINEPHRINE 0.5% 1:200,000 1.8 ML CARP ONE (08:02)
[2022-04-22] MEDS ORDERED: fentaNYL citrate 100 MCG/2 ML VIAL IV PRN (08:18)
[2022-04-22] MEDS ORDERED: HYDROmorphone INJ 2 MG/ML SYR/VIAL IV PRN (08:18)
[2022-04-22] MEDS ORDERED: ePHEDrine sulfate 50 MG/ML AMP IV PRN (08:18)
[2022-04-22] MEDS ORDERED: ONDANSETRON INJ 2 MG/ML 2 ML VIAL IV PRN (08:18)
[2022-04-22] MEDS ORDERED: ATROPINE SULFATE 0.1 MG/ML 10ML SYR IV PRN (08:18)
--- NOTE | 2022-04-22 08:18 | Anesthesiology Consultation ---
Date of Service April 22, 2022 Assessment & Plan ASA ASA3 Proposed Anesthesia Anesthesia Type: General Risk / Benefits Reviewed With: PT / POA / Parent / Guardian, Accepts Plan and Informed Consent Obtained History Surgery Operation Date: 04/22/22 12:00 Proposed Procedures p Complete Bony Impaction - Moy Lehman, DMD Height/Weight Height: 5 ft 9 in Weight: 61.6 kg Allergies Allergy/AdvReac Type Severity Reaction Status Date / Time Penicillins Allergy Hives Unverified 04/21/22 11:11 Medications Home Medications Medication Instructions Recorded Confirmed Last Taken acetaminophen 650 mg tablet 650 mg PO Q4H PRN 04/21/22 04/21/22 04/21/22 clonidine HCl 0.1 mg tablet 0.1 mg PO DAILY 04/21/22 04/21/22 Unknown dexmethylphenidate 20 mg 20 mg PO DAILY 04/21/22 04/21/22 04/21/22 capsule,extended release [id number] (Focalin XR) escitalopram oxalate 20 mg tablet 20 mg PO HS 04/21/22 04/21/22 Unknown famotidine 20 mg tablet 20 mg PO BID 04/21/22 04/21/22 04/20/22 folic acid 1 mg tablet 1 mg PO DAILY 04/21/22 04/21/22 04/20/22 hydroxyzine pamoate 50 mg capsule 50 mg PO DAILY 04/21/22 04/21/22 Unknown ibuprofen 600 mg tablet 600 mg PO Q6H PRN 04/21/22 04/21/22 04/21/22 loratadine 10 mg tablet (Claritin) 10 mg PO DAILY 04/21/22 04/21/22 04/21/22 mecobalamin (vitamin B12) 1,000 1,000 mcg PO DAILY 04/21/22 04/21/22 04/21/22 mcg chewable tablet (B12 Active) melatonin 5 mg chewable tablet 5 mg PO HS PRN 04/21/22 04/21/22 04/20/22 multivitamin 1 tab PO DAILY 04/21/22 04/21/22 04/21/22 thiamine HCl (vitamin B1) 100 mg 100 mg PO DAILY 04/21/22 04/21/22 04/21/22 tablet Active Medications Generic Name Dose Route Start Last Admin Trade Name Freq PRN Reason Stop Dose Admin Acetaminophen 650 mg 04/21/22 15:34 04/21/22 18:37 Acetaminophen 325 Mg Tab PO 05/21/22 15:33 650 mg Q4H PRN Administration pain/fever Chlorhexidine Gluconate 15 ml 04/21/22 15:34 04/21/22 21:06 Chlorhexidine Gluconate 0.12% 480 Ml MT 05/21/22 15:33 15 ml BID LUPILLO Administration Escitalopram Oxalate 20 mg 04/21/22 21:00 04/21/22 21:05 Escitalopram Oxalate 20 Mg Tab PO 05/21/22 20:59 20 mg HS LUPILLO Administration Famotidine 20 mg 04/21/22 21:00 04/21/22 21:05 Famotidine 20 Mg Tab PO 05/21/22 20:59 20 mg BID LUPILLO Administration Clindamycin Phosphate 600 mg/ 54 mls @ 100 mls/hr 04/21/22 21:00 04/22/22 06:01 Dextrose IV 05/01/22 20:59 Infused Q8H LUPILLO Infusion Lactated Ringer's 1,000 mls @ 80 mls/hr 04/22/22 00:00 04/22/22 01:00 Lr IV 05/22/22 00:00 80 mls/hr .[id number] LUPILLO Administration Miscellaneous 1 ea 04/22/22 00:00 04/21/22 22:10 Dexmethylphenidate [Focalin Xr] - Order Awaiting Action N/A 05/22/22 00:00 Not Given QS LUPILLO NPO Date Last Intake of Fluids: 04/21/22 Time Last Intake of Fluids: 23:59 Date Last Intake of Solids: 04/21/22 Time Last Intake of Solids: 23:59 Past Medical History Medical History (Updated 04/21/22 @ 15:32 by Bandar Beavers MD) AA (alcohol abuse) ADHD Anxiety Facial cellulitis Exercise / Class Metabolic Activity II 4-5 Yardwork/Stairs/Walk up hill Past Family History Family History (Updated 04/21/22 @ 13:18 by EDUARD Argueta) Grandfather Heart disease Myocardial infarction Other Hypertension Past Anesthesia History No Hx of Anesthesia Complications and No Family Hx of Anesthesia Complications History of PONV No Hx of PONV and No Hx of Motion Sickness Social History Smoking Status: Never smoker Hx Alcohol Use: Yes Alcohol type: beer alcohol intake frequency: other Alcohol Intake Frequency Comment: in rehab last drink ~14 days ago Hx Substance Use: No Review of Systems denies fever/cough/ colds/ chest pain/ SOB/ NAHID denies NAHID Physical Exam Vital Signs Last Vital Signs Temp 36.8 C 04/22/22 07:39 Pulse 85 04/22/22 07:39 Resp 18 04/22/22 07:39 BP 106/70 04/22/22 07:39 Pulse Ox 96 04/22/22 07:39 ENMT Mouth: no TMJ abnormality and no dentition abnormality Thyromental Distance: > or= 3.5 Finger Breadths Mallampati Class: II Neck neck extension not limited Respiratory normal respiratory effort; no respiratory distress Auscultation: lungs clear to auscultation bilaterally Cardiovascular Rate/Rhythm: regular rate and regular rhythm Neurologic moves all extremities Psychiatric Orientation: alert and oriented x 3 Testing Laboratory Results 04/22/22 05:46 04/22/22 05:46
--- NOTE | 2022-04-22 08:44 | History & Physical Bridge Note ---
Date of Service April 22, 2022 History & Physical Bridge Note I have examined the patient, reviewed the History & Physical and in the interval since the performance of the History & Physical I have noted the following changes of clinical significance: no changes noted OK for I&D today Possible D/C this afternoon
[2022-04-22] MEDS: CHLORHEXIDINE GLUCONATE 0.12% 480 ML MT SCH (08:48)
[2022-04-22] MEDS ORDERED: hydrOXYzine HCl 25 MG TAB PO SCH (09:00)
[2022-04-22] MEDS ORDERED: THIAMINE HCL 100 MG TAB PO SCH (09:00)
[2022-04-22] MEDS ORDERED: FOLIC ACID 1 MG TAB PO SCH (09:00)
[2022-04-22] MEDS ORDERED: SUGAMMADEX SODIUM 200 MG/2 ML VIAL IV ONE (09:21)
[2022-04-22] MEDS ORDERED: GLYCOPYRROLATE 0.2 MG/ML VIAL ONE (09:21)
[2022-04-22] MEDS ORDERED: NEOSTIGMINE METHYLSULFATE 1 MG/ML 10ML VIAL ONE (09:21)
--- NOTE | 2022-04-22 09:48 | Anesthesiology Progress Note ---
Date of Service April 22, 2022 Anesthesia Post Procedure Vital Signs Vital Signs: Temp Pulse Pulse Pulse Resp BP Pulse Ox 04/22/22 09:40 86 14 121/70 95 04/22/22 09:30 36.2 C L 95 H 15 135/84 99 04/22/22 07:39 36.8 C 85 18 106/70 96 04/21/22 21:39 37.3 C 87 16 116/78 97 04/21/22 15:41 37 C 79 16 135/92 99 04/21/22 15:08 80 19 04/21/22 14:41 106 H 16 124/82 100 04/21/22 13:41 87 17 136/89 100 04/21/22 12:45 98 H 18 130/88 99 04/21/22 11:47 98 H 18 136/96 98 04/21/22 10:40 117 H 117 H 18 134/84 97 Pain Intensity Mouth: Pain Intensity: 0 Transfer of Care Handoff Completed per policy Notes Mental Status: alert / awake / arousable and participated in evaluation Patient Amnestic to Procedure: Yes Nausea / Vomiting: adequately controlled Pain: adequately controlled Airway Patency, RR, SpO2: stable & adequate BP & HR: stable & adequate Hydration State: stable & adequate Anesthetic Complications: no major complications apparent and Pt Satisfied with anesthetic care
--- NOTE | 2022-04-22 10:00 | Operative Report ---
PG Post Operative Report Pre & Post Diagnosis Operation Date: 04/22/22 12:00 Pre-Op Diagnosis: FACE ABSCESS upper left lip and infraorbital space Post-Op Diagnosis: FACE ABSCESS upper left lip and infraorbital space I identified the patient and participated in the time-out.: Yes Procedure Operation Date: 04/22/22 12:00 Actual Procedures p I&D infraorbital swelling left side and subperiosteal abscess Surgeon Moy Lehman DMD Acetylene Torch Solderer none Estimated Blood Loss 3 Findings Consistent with Post-Op Diagnosis infraorbital swelling left side and subperiosteal abscess Specimens I&D fluid and ? cystic capsule Drains 1/4 yadi Anesthesia Type General Complications none Indications acute facial swelling upper left side Description of Procedure CODING CPT 44229 I&D abscess intraoral Incision and Drainage left infraorbital space CPT 66065 K12.2 cellulitis of the face Actual Procedures p Incision and Drainage of left infraorbital space Abscess; (Not Applicable) - Moy Lehman DMD Once cleared for surgery general anesthesia was achieved, the eyes were protected by the anesthesia dept criteria. A time out was take for patient ID, antibiotics, equipment and position verification once all agreed the procedure began. Local anesthesia using Marcaine with a vasoconstrictor ( 1.8 ml per site) given into upper left maxilla A throat pack was placed after the oral cavity was irrigated with saline. Once a surgical level of anesthesia was obtained and the local anesthesia was given time for the blocks the surgery was started. I turned my attention to the infection which was located in the upper left i nfraorbital area The swelling was located under the left eye and cheek. Incision and Drainage left infraorbital space CPT 21512 Using a 15 blade an incision was made in the upper left mucobuccal fold which was grossly swollen. Once the incision was made a lot of pus extruded from the site. This drainage was cultured for anaerobic and aerobic bacteria. A curved hemostat was carefully placed into the the infraorbital space up to the infraorbital rim of bone. Some further drainage was now allowed to escape. I palpated the cheek and no further drainage was expressed. The area was irrigated with at least 100 ml of NS solution. It was noted that there was a cystic capsule surrounding the swelling--this was sent for pathology. I now placed a 1/4 inch [place] drain and sutured into place with a 2-0 chromic. The drain will be removed in my office . Once the drain was placed I inspected the sites to insure all bleeding was controlled. I removed the throat pack and suctioned the throat. All instrument and sponge count was correct. The patient was allowed to awake from the anesthesia. Once full awake the anesthesia tube was removed and the patient was taken to the recovery room with all vital sign stable. The patient tolerated the surgery very well. I will follow the patient in my office, Rx and instructions will be given upon discharge. I attest to the content of the Intraoperative Record and any orders documented therein. Any exceptions are noted below.
[2022-04-22] MEDS: FAMOTIDINE 20 MG TAB PO SCH (10:30)
--- NOTE | 2022-04-22 13:40 | Discharge Summary ---
Date of Service April 22, 2022 Admission HPI Per Admitting Provider 21 YOM that is currently at [facility] day ~day 14 for alcohol rehab. He has history of: ADHD, Anxiety with allergy to PCN(Hives as a kid). Patient reports to the EMD today for complaints of left facial pain and swelling. This started approx 2 days ago where he thought he just got bit by something or having an allergic reaction. This progressed to left upper tooth pain and noticing some swelling under his left eye. He denies any fevers, chills, sinus congestion or ear pain and without difficulty swallowing. In the EMD the patient had routine labs performed, and soft tissue of the neck, head and face CT scan performed notable for abscess overlying left maxilla with mucosal thickening. The patient is having pain on the left upper side of his mouth at or approx teeth number 11- 13. Patient was started on Clindamycin by the EMD and EMD physician spoke with [facility] solutions manager. Patient to be admitted, kept NPO after midnight for surgical evaluation in the morning. Will continue with Tylenol for pain, allow to eat now, NPO after midnight, Peridex oral rinse. Patient reports that he thought he was drinking a little too much for his age, but didn't have a drinking problem, so he went to [facility] for help. He denies any other drug use. He also denies any hallucinations or difficulty with withdraw. MAR reviewed from there he has not needed any Clonidine for withdraw and feels his anxiety is controlled. COVID test on admission is: NEGATIVE Principal Diagnosis Dental/maxillary abscess Discharge Exam Constitutional WD/WN, vitals as above Eyes + anicteric sclerae ENMT Left upper mouth with drain in place and packing Neck trachea midline, no thyromegaly Respiratory normal respiratory effort, lungs clear to auscultation Cardiovascular RRR, no murmur, no edema Chest (Breasts) Chest: normal inspection of chest Gastrointestinal (Abdomen) normal bowel sounds, soft, nontender, no hepatosplenomegaly Musculoskeletal Extremities: extremities normal to inspection; no cyanosis and no clubbing Skin no rashes, warm and dry Neurologic moves all extremities and awake; no focal motor deficits Psychiatric A+Ox3, euthymic affect Lymphatic no lymphedema Discharge Data Allergies Allergy/AdvReac Type Severity Reaction Status Date / Time Penicillins Allergy Hives Unverified 04/21/22 11:11 Consultations 05/21/22 15:34 Consult Oromaxillofacial Surgery Routine Procedures Performed Operation Date: 04/22/22 12:00 Actual Procedures p Complete Bony Impaction(Left) - Moy Lehman, CLAUDE Ordered Studies 04/21/22 10:25 CT soft tissue neck w con Stat Hospital Course (1) Tooth abscess: There is moderate polypoid mucosal thickening of the left maxillary sinus. Extensive left facial and neck stranding is noted with skin thickening. There is thickening of the left platysma. This is centered on the left maxilla. There is a 2 x 0.7 cm rim-enhancing fluid collection along the anterolateral aspect of the left maxilla. This represents an abscess. - Clindamycin continue 600mg IV q8 hours was given -Oromaxillary facial surgery was consulted and they took him for an abscess drainage on 04/22 which he tolerated well [place] drain is left in place Discharge to home on clindamycin 300 Mg p.o. every 6 hours x10 days Follow-up with [facility] in the office in 3 days for drain removal Continue ibuprofen or Tylenol as needed for pain He is doing very well Leukocytosis resolved, afebrile (2) AA (alcohol abuse): ~ Day 14 from last drink and at rehab - Should be well outside the range for any withdraw - He reports not having any hallucinations or seizures with his stay there - MAR reviewed as per HPI has not needed any of his PRNs for withdraw sx - Continue Thiamine and Folic Acid (3) Anxiety: Continue Hydroxyzine Continue escitalopram 20mg nightly (4) ADHD: Continue with Focalin XR or equivalent- if no formulary equivalent should be in house <48 hours (5) DVT prophylaxis: SCDs/ambulation Disposition-stable for discharge Total Time Total Time Spent Total Time Spent (In Minutes): 35 minutes Discharge Plan Discharge Items Patient Disposition: Drug & Alcohol Rehab Reason For Visit: FACE ABSCESS Discharge Diagnosis: s/p I&D left face Condition on Discharge: Good Activity: Resume your previous activity Lifting: Gradually increase as tolerated Bathing: No limitations Exercise/Sports: Gradually increase as tolerated Weightbearing: Full weightbearing Non-emergency contact: Surgeon Call non-emergency contact if: you have any medication questions, your symptoms worsen, your pain is not controlled, your pain is worsening, your pain is unusual for you, your pain is concerning for you, your wound has increased redness, your wound has increased drainage and your wound pain has increased Follow-up/Referrals: Chino Bowles [Other] Moy Lehman, DMD [Physician] - Diet: Regular Diet Texture: Easy to Chew Addtl Attending Provider Instructions: ADDITIONAL ACTIVITY RECOMMENDATIONS: * [place] teeth after every meal. It is very important to keep your mouth clean to prevent infection. * Starting tonight rinse with the Peridex as directed then 2 x a day * it is very important to keep well hydrated, this prevents fever SPECIAL CARE INSTRUCTIONS: * Clindamycin was called to [facility] Clindamycin 300 mg 1 q 6 hrs Motrin 600 1 q 6-8 hrs as needed for pain * do not disturb the drain upper left side--I will remove it on *It is not uncommon that between day 2-4 that your swelling will be at its worst this is very normal, do not be alarmed. * Keep ice on the side of your face for the next 24 to 36 hours. This will help keep the swelling down. * After 36 hours, apply heat (hot water bottle or heating pad) for the next two days, as often as possible. * Tomorrow start rinsing your mouth with 1/2 teaspoon salt in 8 ounces warm water. This rinse should be used every 4-6 hours. * You may experience slight nausea. To prevent this, never take your medication on an empty stomach. If nauseated, take small sips of lalo yayo until you feel better; then you may start on applesauce and toast. * Some swelling is common. It should gradually decrease within 4-5 days. * A certain amount of bleeding is to be expected. It is often possible to control mild oozing by placing folded gauze over the area and biting down for 30 minutes. If you are unable to control excessive bleeding, call Dr Lehman at [phone] * You may experience some discomfort for a few days. If pain or swelling increases, Call Dr Lehman * Return to the office for a follow up check up on: April 26 at 2:45 pm * office address--[address] phone # [phone] Pending Studies at Discharge: Yes Studies:: results of I&D Stand-Alone Forms: My [facility] Skilled Items Patient informed of condition?: Yes DNR: No Discharge Level of Care: Acute rehab Communicable Disease: No Discharge Prognosis: Improving Lines: None Urinary Catheter: No Medications and DC Order Prescriptions: New chlorhexidine gluconate 0.12 % Mouthwash 15 ml MT BID Qty: 118 RF: 0 clindamycin HCl 300 mg capsule 300 mg PO Q6H 10 Days Qty: 40 RF: 0 Continued multivitamin Tablet 1 tab PO DAILY RF: 0 clonidine HCl 0.1 mg tablet 0.1 mg PO DAILY RF: 0 thiamine HCl (vitamin B1) 100 mg Tablet 100 mg PO DAILY RF: 0 hydroxyzine pamoate 50 mg capsule 50 mg PO DAILY RF: 0 acetaminophen 650 mg Tablet 650 mg PO Q4H PRN (Reason: Pain) RF: 0 famotidine 20 mg Tablet 20 mg PO BID RF: 0 folic acid 1 mg tablet 1 mg PO DAILY RF: 0 ibuprofen 600 mg Tablet 600 mg PO Q6H PRN (Reason: Pain) RF: 0 loratadine [Claritin] 10 mg Tablet 10 mg PO DAILY RF: 0 escitalopram oxalate 20 mg tablet 20 mg PO HS RF: 0 dexmethylphenidate [Focalin XR] 20 mg Capsule,Er Biphasic 50-50 20 mg PO DAILY RF: 0 melatonin 5 mg Tablet,Chewable 5 mg PO HS PRN (Reason: Sleep) RF: 0 B12 Active 1,000 mcg Tablet,Chewable 1,000 mcg PO DAILY RF: 0 Admission Data Admit Date/Time: 04/21/22 12:45 Attending Provider: Aarti Ruiz Admit Provider: Aarti Ruiz Other Providers: Moy Lehman Other Interventions: Discharge Summary Assessment (RN) Last Done: 04/22/22 13:21 Coding Level of Care Code 57205 OBS Care - Discharge Diagnoses Tooth abscess K04.7 AA (alcohol abuse) F10.10 Anxiety F41.9 ADHD F90.9 DVT prophylaxis Z29.9
--- NOTE | 2022-04-22 14:59 | Electrocardiogram Report ---
Test Reason : Blood Pressure : / mmHG Vent. Rate : 079 BPM Atrial Rate : 079 BPM P-R Int : 120 ms QRS Dur : 082 ms QT Int : 340 ms P-R-T Axes : 037 069 055 degrees QTc Int : 389 ms Normal sinus rhythm with sinus arrhythmia Normal ECG No previous ECGs available Confirmed by Nelson Crowe ([id number]) on 04/22/2022 2:58:56 PM Referred By: REFERRED SELF Confirmed By:Nelson Crowe
== END 2022-04-22 14:14 | disposition alcohol treatment (31) ==
LOC: 3E 09:18 → ED 09:18 → 3E 15:08